=== PATIENT | male | born 1980 | race Hispanic/Latino ===

== ENCOUNTER 2020-09-07 17:21 | Emergency (ER) | payer SELFPAY ==
[2020-09-07] MEDS ORDERED: LORazepam 2 MG/ML VIAL ONE (18:18)
[2020-09-07 18:24] LABS: Protime INR 0.86
[2020-09-07 18:25] LABS: Absolute Lymphocytes (CBC) 1.9 K/uL (0.7-4.9); Basophils % 0.4 % (0-1.3); Hematocrit 40.9 % (39.6-49.0); Lymphocytes % 25.1 % (15.3-44.8)
[2020-09-07 18:39] LABS: ALT/SGPT 37 U/L (12-78); AST/SGOT 27 U/L (15-37); Albumin 3.8 g/dL (3.4-5.0); Alkaline Phosphatase 170 U/L (45-117); BUN Blood Urea Nitrogen 9 mg/dL (7-18); Bicarbonate 29 mmol/L (21-32); Bilirubin Direct 0.1 mg/dL (0-0.2); Bilirubin Total 0.5 mg/dL (0.2-1.0); Glucose Level 111 mg/dL (74-106); Magnesium 2.1 mg/dL (1.8-2.4); NT PRO-BNP 15 pg/mL (<125); Potassium 3.3 mmol/L (3.5-5.1); Protein, Total 7.8 g/dL (6.4-8.2); Sodium Level 140 mmol/L (136-145); Troponin (Emerg Dept Use Only) < 0.02 ng/mL (0.0-0.045)
--- NOTE | 2020-09-07 18:50 | RAD REPORT ---
EXAM DESCRIPTION: RAD - Chest Single View - 09/07/2020 6:36 pm CLINICAL HISTORY: CHEST PAIN Chest pain. COMPARISON: No comparisons FINDINGS: Portable technique limits examination quality. The lungs are grossly clear. The heart is normal in size. No displaced fractures. IMPRESSION: No acute intrathoracic process suspected.
--- NOTE | 2020-09-07 19:53 | EDPHYS ---
Physician Documentation [facility] Name: Saroj De Souza Age: 40 yrs Sex: Male : 1980 Arrival Date: 09/07/2020 Time: 17:24 Bed 13 Private MD: ED Physician Frank Baldwin HPI: 09/07 17:54 This 40 yrs old Male presents to ER via Ambulatory with complaints of Chest Pain. [facility] 17:54 The patient or guardian reports chest pain that is located primarily in the substernal [facility] area. The pain radiates to left foot. Associated signs and symptoms: Pertinent negatives: cough, shortness of breath. The chest pain is described as sharp. This is a 40 year old male with no known chronic medical conditions that rpesents tot he ED with complaints of left sided chest pain beginning approx 1 hour ago. patient states having a feeling of impending . Patient states on episodes of pain he feeling a sharp sensation n in his left foot. . Historical: - Allergies: 17:41 No Known Allergies; ca1 - Home Meds: 17:41 None [Active]; ca1 - PMHx: 17:41 None; ca1 - PSHx: 17:41 None; ca1 - Immunization history:: Flu vaccine is not up to date. - Social history:: Smoking status: Patient reports the use of cigarette tobacco products, smokes one-half pack cigarettes per day, Patient uses alcohol, occasionally. ROS: 17:54 Constitutional: Negative for fever, chills, and weight loss. [facility] 17:54 Cardiovascular: Positive for chest pain. 17:54 All other systems are negative. Exam: 17:54 Head/Face: atraumatic. Eyes: EOMI, no conjunctival erythema appreciated ENT: Moist [facility] Mucus Membranes Neck: Trachea midline, Supple Chest/axilla: Normal chest wall appearance and motion. Cardiovascular: Regular rate and rhythm. No edema appreciated Respiratory: Normal respirations, no respiratory distress appreciated Abdomen/GI: Non distended, soft Back: Normal ROM Skin: General appearance color normal MS/ Extremity: Moves all extremities, no obvious deformities appreciated, no edema noted to the lower extremities 17:54 Constitutional: The patient appears alert, awake, anxious, uncomfortable. 17:54 Neuro: Orientation: is normal, Mentation: is normal, Memory: is normal. 17:54 Psych: Behavior/mood is cooperative, anxious. 18:02 ECG was reviewed by the Attending Physician. [facility] Vital Signs: 17:38 BP 138 / 94; Pulse 72; Resp 18 S; Temp 97.3(TE); Pulse Ox 100% on R/A; Weight 65.32 kg ca1 (R); Height 5 ft. 5 in. (165.10 cm) (R); Pain 10/10; 18:00 BP 124 / 78; Pulse 65; Resp 16; Pulse Ox 98% ; bp 18:59 BP 121 / 88; Pulse 67; Resp 16; Pulse Ox 100% ; bp 17:38 Body Mass Index 23.96 (65.32 kg, 165.10 cm) ca1 MDM: 17:48 Patient medically screened. [facility] 19:50 Data reviewed: vital signs, nurses notes. Counseling: I had a detailed discussion with [facility] the patient and/or guardian regarding: the historical points, exam findings, and any diagnostic results supporting the discharge/admit diagnosis, lab results, radiology results, the need for outpatient follow up, to return to the emergency department if symptoms worsen or persist or if there are any questions or concerns that arise at home. ED course: Pain is relieved. HEART SCORE = 1 PERC NEGATIVE. Patient advised to follow up with cardio for further evaluation. Patient otherwise given strict return precautions. patient understood and agrees with the plan of care. . 09/07 17:40 Order name: Basic Metabolic Panel [facility] 09/07 17:40 Order name: CBC with Diff; Complete Time: 18:45 [facility] 09/07 17:40 Order name: LFT's; Complete Time: 18:45 [facility] 09/07 17:40 Order name: Magnesium; Complete Time: 18:45 [facility] 09/07 17:40 Order name: NT PRO-BNP; Complete Time: 18:45 [facility] 09/07 17:40 Order name: PT-INR; Complete Time: 18:45 [facility] 09/07 17:40 Order name: Troponin (emerg Dept Use Only); Complete Time: 18:45 [facility] 09/07 17:40 Order name: XRAY Chest (1 view); Complete Time: 18:55 [facility] 09/07 17:40 Order name: EKG; Complete Time: 17:41 [facility] 09/07 17:40 Order name: Cardiac monitoring; Complete Time: 17:47 [facility] 09/07 17:40 Order name: EKG - Nurse/Tech; Complete Time: 17:47 [facility] 09/07 17:40 Order name: IV Saline Lock; Complete Time: 18:10 [facility] 09/07 17:41 Order name: Basic Metabolic Panel; Complete Time: 18:45 [facility] 09/07 17:40 Order name: Labs collected and sent; Complete Time: 17:56 [facility] 09/07 17:40 Order name: O2 Per Protocol; Complete Time: 17:47 [facility] 09/07 17:40 Order name: O2 Sat Monitoring; Complete Time: 17:47 jm EC:02 Rate is 63 beats/min. Rhythm is regular. QRS [place] is Normal. [place] interval is normal. QRS jmm interval is normal. QT interval is normal. No Q waves. T waves are Normal. No ST changes noted. Reviewed by me. Administered Medications: 18:00 Drug: Ativan 1 mg Route: IVP; Site: right antecubital; bp 18:27 Follow up: Response: Anxiety decreased bp 20:21 Follow up: Response: No adverse reaction ll2 Disposition: 09/07/20 19:52 Discharged to Home. Impression: Chest pain, unspecified. - Condition is Stable. - Discharge Instructions: Nonspecific Chest Pain. - Medication Reconciliation Form, Thank You Letter, Antibiotic Education, Prescription Opioid Use, Work release form form. - Follow up: Ranjeet Hsieh MD; When: As needed; Reason: Recheck today's complaints, Continuance of care, Re-evaluation by your physician. Addendum: 09/10/2020 07:12 Co-signature as Attending Physician, Frank Baldwin MD. r n Signatures: Dispatcher [employer] MS Sanjay Romano PA PA [facility] Frank Baldwin MD MD rn Pena, Laura, RN RN lp1 Facundo Ty RN RN Kim Haskins RN RN ca1 Meredith Alston RN ll2 Corrections: (The following items were deleted from the chart) 09/07 19:52 19:52 09/07/2020 19:52 Discharged to Home. Impression: Chest pain, unspecified. [facility] Condition is Stable. Forms are Medication Reconciliation Form, Thank You Letter, Antibiotic Education, Prescription Opioid Use. Follow up: Private Physician; When: 2 - 3 days; Reason: Recheck today's complaints, Continuance of care, Re-evaluation by your physician. lesa 20:31 19:52 09/07/2020 19:52 Discharged to Home. Impression: Chest pain, unspecified. lp1 Condition is Stable. Discharge Instructions: Nonspecific Chest Pain. Forms are Medication Reconciliation Form, Thank You Letter, Antibiotic Education, Prescription Opioid Use. Follow up: Ranjeet Hsieh; When: As needed; Reason: Recheck today's complaints, Continuance of care, Re-evaluation by your physician. lesa
--- NOTE | 2020-09-07 19:53 | ER ---
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 States, "I ca1 feel like I am going to . Whenever the chest pain started I feel electricity shooting on both my feet. I feel dizzy and fainting". Denies cough. Coronavirus screen: Client denies travel out of the [place] in the last 14 days. shortness of breath, Client presents with at least one sign or symptom that may indicate coronavirus-19. Standard/surgical mask placed on the client. Provider contacted for isolation considerations. Ebola Screen: Patient negative for fever greater than or equal to 101.5 degrees Fahrenheit, and additional compatible Ebola Virus Disease symptoms Patient denies exposure to infectious person. Patient denies travel to an Ebola-affected area in the 21 days before illness onset. No symptoms or risks identified at this time. Initial Sepsis Screen: Does the patient meet any 2 criteria? No. Patient's initial sepsis screen is negative. Does the patient have a suspected source of infection? No. Patient's initial sepsis screen is negative. Risk Assessment: Do you want to hurt yourself or someone else? Patient reports no desire to harm self or others. Onset of symptoms was September 07, 2020. 17:38 Method Of Arrival: Ambulatory ca1 17:38 Acuity: JED 3 ca1 Triage Assessment: 17:45 General: Appears distressed, uncomfortable, Behavior is cooperative, appropriate for bp age, agitated, anxious. Pain: Complains of pain in chest. EENT: No deficits noted. Neuro: No deficits noted. Cardiovascular: Rhythm is sinus rhythm. Respiratory: No deficits noted. GI: No signs and/or symptoms were reported involving the gastrointestinal system. : No signs and/or symptoms were reported regarding the genitourinary system. Derm: No deficits noted. Musculoskeletal: No deficits noted. Historical: - Allergies: 17:41 No Known Allergies; ca1 - Home Meds: 17:41 None [Active]; ca1 - PMHx: 17:41 None; ca1 - PSHx: 17:41 None; ca1 - Immunization history:: Flu vaccine is not up to date. - Social history:: Smoking status: Patient reports the use of cigarette tobacco products, smokes one-half pack cigarettes per day, Patient uses alcohol, occasionally. Screenin:45 Abuse screen: Denies threats or abuse. Denies injuries from another. Nutritional bp screening: No deficits noted. Tuberculosis screening: No symptoms or risk factors identified. 17:45 Fall Risk None identified. bp Assessment: 17:45 General: SEE TRIAGE NOTE. bp 18:59 Reassessment: No changes from previously documented assessment. Patient and/or family bp updated on plan of care and expected duration. Pain level reassessed. Patient is alert, oriented x 3, equal unlabored respirations, skin warm/dry/pink. Vital Signs: 17:38 BP 138 / 94; Pulse 72; Resp 18 S; Temp 97.3(TE); Pulse Ox 100% on R/A; Weight 65.32 kg ca1 (R); Height 5 ft. 5 in. (165.10 cm) (R); Pain 10/10; 18:00 BP 124 / 78; Pulse 65; Resp 16; Pulse Ox 98% ; bp 18:59 BP 121 / 88; Pulse 67; Resp 16; Pulse Ox 100% ; bp 17:38 Body Mass Index 23.96 (65.32 kg, 165.10 cm) ca1 ED Course: 17:24 Patient arrived in ED. ag5 17:29 Sanjay Romano PA is PHCP. [facility] 17:29 Frank Baldwin MD is Attending Physician. [facility] 17:34 Facundo Ty, ABRAHAM is Primary Nurse. bp 17:40 Triage completed. ca1 17:41 Arm band placed on right wrist. ca1 17:45 Patient has correct armband on for positive identification. Bed in low position. Call bp light in reach. Side rails up X2. threat monitoring analyst on. Pulse ox on. NIBP on. 18:00 Inserted saline lock: 22 gauge in right antecubital area, using aseptic technique. bp Blood collected. 18:00 Patient maintains SpO2 saturation greater than 95% on room air. bp 18:36 XRAY Chest (1 view) In Process Unspecified. EDMS 19:52 Ranjeet Hsieh MD is Referral Physician. jmm Administered Medications: 18:00 Drug: Ativan 1 mg Route: IVP; Site: right antecubital; bp 18:27 Follow up: Response: Anxiety decreased bp 20:21 Follow up: Response: No adverse reaction ll2 Outcome: 19:52 Discharge ordered by MD. [email or web address] 20:31 Patient left the ED. lp1 Signatures: Dispatcher [employer] EDMS Sanjay Romano PA PA jmm Pena, Laura RN RN lp1 Facundo Ty RN RN bp Kim Newell RN RN ca1 Yony Walters 5 Meredith Alston RN RN ll2
[2020-09-07 20:35] VITALS: TEMP 97.3
[2020-09-07 20:38] VITALS: BP 121/88; O2SAT 100
--- NOTE | 2020-09-08 07:21 | EKG ---
Test Date: 2020-09-07 Test Time: 17:54:52 Linen Manager: MERE MEASUREMENT RESULTS: Intervals: Rate: 63 IL: 120 QRSD: 88 QT: 396 QTc: 405 [place]: P: 52 IL: 120 QRS: 83 T: 49 INTERPRETIVE STATEMENTS: Normal sinus rhythm Normal ECG No previous ECG available for comparison Electronically Signed On 09-08-20 07:20:23 ANALOG CIRCUIT DESIGNER by Ranjeet Hsieh
== END 2020-09-07 20:31 | disposition home or self-care (01) ==
LOC: ER 17:21 → EDBD 17:21 → ER 20:31
DX: R07.9 Chest pain, unspecified (principal); F17.210 Nicotine dependence, cigarettes, uncomplicated
CPT/HCPCS: 36415; 71045; 80048; 80076; 83735; 83880; 84484; 85025; 85610; 93005; 96374; 99285